=== PATIENT | female | born 2000 | race American Indian/Alaskan Native ===

== ENCOUNTER 2021-06-03 14:09 | Emergency (ER) | payer MEDICAID ==
[2021-06-03 16:30] VITALS: BP 141/76
[2021-06-03] MEDS ORDERED: FLUORESCEIN 1 MG STRIP OP ONE (18:02)
[2021-06-03] MEDS ORDERED: TETRACAINE 0.5% OPHTH SOLN 4ML OU PRN (18:02)
--- NOTE | 2021-06-03 18:18 | Emergency Department Report ---
ED General Adult HPI - General Chief complaint: Eye Problems Stated complaint: POSS PNK EYE Time Seen by Provider: 06/03/21 18:02 Source: patient Mode of arrival: Ambulatory Limitations: No Limitations - History of Present Illness Initial comments: 20-year-old -[place] female patient presents with complaints of sudden onset of left eye pain upon waking this morning. She states yesterday she got a great deal of soap and shampoo in her eye and had to keep washing her eye out. Patient is a contact lens wear. She denies any trauma to her eye, vision changes, eye drainage/crusting of the eyes shut. She rates her current pain is 8/10 in severity and and admits to significant photophobia. No prior medical history per patient. - Related Data Previous Rx's Medication Instructions Recorded Last Taken Type Acetaminophen/Codeine [Tylenol 1 tab PO Q6H PRN #8 tab 06/03/21 Unknown Rx /Codeine # 3 tab] Ibuprofen [Motrin 800 MG tab] 800 mg PO Q8HR PRN #20 tablet 06/03/21 Unknown Rx Ofloxacin 0.3% [Ocuflox 0.3% opth] 2 drops OU Q4H 7 Days #1 bottle 06/03/21 Unknown Rx Allergies Allergy/AdvReac Type Severity Reaction Status Date / Time No Known Allergies Allergy Unverified 06/03/21 16:25 ED Review of Systems ROS: Stated complaint: POSS PNK EYE Other details as noted in HPI Constitutional: denies: chills, fever Eyes: eye pain. denies: eye discharge, vision change Neurological: denies: headache, numbness, paresthesias ED Past Medical Hx - Past Medical History Additional medical history: TRIGEMIAL NU - Surgical History Past Surgical History?: No - Medications Home Medications: Home Medications Medication Instructions Recorded Confirmed Last Taken Type Acetaminophen/Codeine [Tylenol 1 tab PO Q6H PRN #8 tab 06/03/21 Unknown Rx /Codeine # 3 tab] Ibuprofen [Motrin 800 MG tab] 800 mg PO Q8HR PRN #20 tablet 06/03/21 Unknown Rx Ofloxacin 0.3% [Ocuflox 0.3% opth] 2 drops OU Q4H 7 Days #1 bottle 06/03/21 Unknown Rx ED Physical Exam - General Limitations: No Limitations General appearance: alert, in no apparent distress - Head Head exam: Present: atraumatic, normocephalic - Eye Eye exam: Present: conjunctival injection (Mild left). Absent: scleral icterus, periorbital swelling, periorbital tenderness Pupils: Present: other (Mild corneal abrasion noted to the left eye; eyelid everted and swept no foreign bodies noted) - Respiratory Respiratory exam: Absent: respiratory distress - Cardiovascular Cardiovascular Exam: Present: regular rate - Neurological Exam Neurological exam: Present: alert, oriented X3 - Psychiatric Psychiatric exam: Present: normal affect, normal mood - Skin Skin exam: Present: warm, dry, intact, normal color. Absent: rash ED Course Vital Signs 06/03/21 16:29 Temperature 98.5 F Pulse Rate 97 H Respiratory 20 Rate Blood Pressure 141/76 O2 Sat by Pulse 98 Oximetry ED Medical Decision Making - Medical Decision Making 20-year-old -[place] female patient presents with complaints of sudden onset of left eye pain upon waking this morning. She states yesterday she got a great deal of soap and shampoo in her eye and had to keep washing her eye out. Patient is a contact lens wear. She denies any trauma to her eye, vision changes, eye drainage/crusting of the eyes shut. She rates her current pain is 8/10 in severity and and admits to significant photophobia. No prior medical history per patient. Mild superficial abrasion of the left cornea noted on exam. Will treat with ofloxacin. Recommend follow-up with ophthalmology. She is well-appearing and stable for discharge home. Strict return precautions were discussed in detail with patient who verbalizes understanding. Critical care attestation.: If time is entered above; I have spent that time in minutes in the direct care of this critically ill patient, excluding procedure time. ED Disposition Clinical Impression: Left eye pain Disposition: DC-01 TO HOME OR SELFCARE Is pt being admited?: No Condition: Stable Instructions: Corneal Abrasion, Photophobia Prescriptions: Ibuprofen [Motrin 800 MG tab] 800 mg PO Q8HR PRN #20 tablet PRN Reason: pain Ofloxacin 0.3% [Ocuflox 0.3% opth] 2 drops OU Q4H 7 Days #1 bottle Acetaminophen/Codeine [Tylenol /Codeine # 3 tab] 1 tab PO Q6H PRN #8 tab PRN Reason: Pain , Severe (7-10) Referrals: BUSHRA RATLIFF MD [Staff Physician] - 2-3 Days
== END 2021-06-03 18:30 | disposition home or self-care (01) ==
LOC: ED 14:09
DX: H57.12 Ocular pain, left eye (principal); Z79.899 Other long term (current) drug therapy